=== PATIENT | male | born 1980 | race Two or more races ===

== ENCOUNTER 2020-08-13 13:27 | Emergency (ER) | payer SELFPAY ==
[~2020-08-13] VITALS: Ht 166.4 cm; Wt 72.3 kg
[2020-08-13 13:30] VITALS: BP 145/95
--- NOTE | 2020-08-13 13:50 | ED.ADGEN ---
General Adult EDM: Chief Complaint: SKIN RASH/ABSCESS HPI: HPI: Patient is a 40 male who arrives ambulatory to the emergency department complaining of some lesions that have developed the corners of his mouth as well as lesions in the folds of his groin over the past week. Patient describes the lesions as painful in the form of burning whenever he perspires. Patient states besides having these lesions, he has not had any symptoms otherwise. Specifically he is not have any penile discharge and is sexually active with only one partner however he has had unprotected sex previous to this partner which followed a divorce. He further denies any history of fevers or new exposures. He is awake, alert and nontoxic-appearing. Review of Systems: Review of Systems: Constitutional: Denies fever or chills. [] Eyes: Denies change in visual acuity. [] HENT: Denies nasal congestion or sore throat. [] Respiratory: Denies cough or shortness of breath. [] Cardiovascular: Denies chest pain or edema. [] GI: Denies abdominal pain, nausea, vomiting, bloody stools or diarrhea. [] : Denies dysuria. [] Musculoskeletal: Denies back pain or joint pain. [] Integument: Reports rash. [] Neurologic: Denies headache, focal weakness or sensory changes. [] Endocrine: Denies polyuria or polydipsia. [] Lymphatic: Denies swollen glands. [] Psychiatric: Denies depression or anxiety. [] Family History: Family History: Noncontributory Allergies: Allergies: Allergies Coded Allergies Type Severity Reaction Last Updated Verified No Known Drug Allergies 08/13/20 No Physical Exam: PE: Constitutional: Well developed, well nourished, no acute distress, non-toxic appearance. [] HENT: Normocephalic, atraumatic, bilateral external ears normal, oropharynx moist, no oral exudates, nose normal. [] Eyes: PERRLA, EOMI, conjunctiva normal, no discharge. [] Neck: Normal range of motion, no tenderness, supple, no stridor. [] Cardiovascular:Heart rate regular rhythm, no murmur [] Lungs & Thorax: Bilateral breath sounds clear to auscultation [] Abdomen: Bowel sounds normal, soft, no tenderness, no masses, no pulsatile masses. [] Skin: Patient has a lesion consistent with an ulceration at the corner of his mouth on the right side. This is likely a herpetic lesion in nature. It is not actively oozing and is solitary in nature. The patient also has lesions in his groin bilaterally. These are raised and fleshy. They are not oozing and there is not a cellulitic character present with this. There are no abscesses present. These findings are most likely consistent with genital warts. [] Back: No tenderness, no CVA tenderness. [] Extremities: No tenderness, no cyanosis, no clubbing, ROM intact, no edema. [] Neurologic: Alert and oriented X 3, normal motor function, normal sensory function, no focal deficits noted. [] Psychologic: Affect normal, judgement normal, mood normal. [] Current Patient Data: Vital Signs: Vital Signs Date Time Temp Pulse Resp B/P (MAP) Pulse Ox O2 Delivery O2 Flow Rate FiO2 08/13/20 13:30 98.2 110 18 145/95 (112) 99 Room Air 98.2 EKG: EKG: [] Heart Score: Risk Factors: Risk Factors: DM, Current or recent (<one month) smoker, HTN, HLP, family his tory of CAD, obesity. Risk Scores: Score 0 - 3: 2.5% MACE over next 6 weeks - Discharge Home Score 4 - 6: 20.3% MACE over next 6 weeks - Admit for Clinical Observation Score 7 - 10: 72.7% MACE over next 6 weeks - Early Invasive Strategies Radiology/Procedures: Radiology/Procedures: [] Course & Med Decision Making: Course & Med Decision Making Pertinent Labs and Imaging studies reviewed. (See chart for details) [] Joleen Disclaimer: Joleen Disclaimer: This electronic medical record was generated, in whole or in part, using a voice recognition dictation system. Departure Departure Impression: Primary Impression: Genital warts Additional Impression: Herpetic lesions of face Disposition: 01 DC HOME SELF CARE/HOMELESS Condition: STABLE Referrals: NO PCP (PCP) Patient Instructions: Genital Warts, Herpes Labialis Scripts Acyclovir (ACYCLOVIR) 400 Mg Tablet 1 TAB PO TID for 10 Days, #30 TAB Prov: IVAN RICE DO 08/13/20 Problem Qualifiers IVAN RICE DO Aug 13, 2020 13:50
[2020-08-13] MEDS ORDERED: ACYC400T PO (13:57)
== END 2020-08-13 14:08 | disposition home or self-care (01) ==
LOC: ER 13:27
DX: B00.89 Other herpesviral infection (principal); A63.0 Anogenital (venereal) warts
CPT/HCPCS: 99283

== ENCOUNTER 2021-04-10 06:47 | Emergency (ER) | payer SELFPAY ==
[~2021-04-10] VITALS: Ht 165.1 cm; Wt 82.7 kg
[~2021-04-10 06:47] MED LIST: ACYC-12 PO; ACYC800T88 PO
--- NOTE | 2021-04-10 07:07 | PHYS DOC ---
Past Medical History Past Medical History: Hypertension Past Surgical History: Other Additional Past Surgical Histo: LITHORIPSY Smoking Status: Current Every Day Smoker Alcohol Use: None General Adult EDM: Chief Complaint: DENTAL PROBLEM HPI: HPI: Patient is a 40 year old male history of HTN who presents with multiple complaints. Primary complaint is left-sided dental pain, neck, and lip swelling. States that a left-sided molar has been fractured and has been hurting him for quite some time. Over the past 3 days has had increasing swelling of the lip and neck on the left. He does report some chills since last night. He reports he does have a longstanding history of dental problems, and has a dentist appointment on Monday of the upcoming week. He also complains of dysuria over the past week as well as penile discharge that is yellow. Reports urgency, frequency as well. No low back pain or flank pain. He is sexually active with one partner for the past 6 months. States no history of STI. Does not use barrier contraception. Review of Systems: Review of Systems: Constitutional: Denies fever or chills. [] Eyes: Denies change in visual acuity. [] HENT: Reports left-sided dental pain, left lip swelling, left neck swelling. Respiratory: Denies cough or shortness of breath. [] Cardiovascular: Denies chest pain or edema. [] GI: Denies abdominal pain, nausea, vomiting, bloody stools or diarrhea. [] : Reports penile discharge, dysuria, urgency, frequency. Musculoskeletal: Denies back pain or joint pain. [] Integument: Denies rash. [] Neurologic: Denies headache, focal weakness or sensory changes. [] Endocrine: Denies polyuria or polydipsia. [] Lymphatic: Denies swollen glands. [] Psychiatric: Denies depression or anxiety. [] Heart Score: C/O Chest Pain: No Allergies: Allergies: Allergies Coded Allergies Type Severity Reaction Last Updated Verified No Known Drug Allergies 08/13/20 No Physical Exam: PE: Constitutional: Well developed, well nourished, no acute distress, non-toxic appearance. [] HENT: Fracture left mandibular molar at the gumline. Some gum swelling nearby redness, but no palpable abscess. There is submandibular swelling on the left, submental tenderness to palpation, and prominent left lower lip swelling and tenderness. Just below the ameya border there is an area of spontaneous drainage. No posterior pharyngeal swelling or uvular deviation. No stridor. Eyes: conjunctiva normal, no discharge. [] Neck: Normal range of motion, no tenderness, supple, no stridor. [] Cardiovascular:Heart rate regular rhythm, no murmur [] Lungs & Thorax: Normal work of breathing. Bilateral breath sounds clear to ausc ultation [] Abdomen: Bowel sounds normal, soft, no tenderness, no masses, no pulsatile masses. [] Skin: Warm, dry, no erythema, no rash. [] Back: No tenderness, no CVA tenderness. [] Extremities: No tenderness, no cyanosis, no clubbing, ROM intact, no edema. [] Neurologic: Alert and oriented X 3, normal motor function, normal sensory function, no focal deficits noted. [] Psychologic: Affect normal, judgement normal, mood normal. [] EKG: EKG: [] Radiology/Procedures: Radiology/Procedures: Indication: Left lower lip abscess. Procedure: The patient was positioned appropriately. Local anesthesia was injected with 1% lidocaine. An small stab incision was then made over the apex of the lesion, where a small amount of drainage was already noted just below the ameya border and thick purulent material was expressed. The patients tetanus status updated as needed. The patient tolerated the procedure with some difficulty Complications: none. Impression: [facility] [address] [place] [address] IMAGING REPORT Signed PATIENT: BERTHA MENA AACCOUNT: [id number] : 1980 LOCATION: ER AGE: 40 SEX: M EXAM STATUS: REG ER ORD. PHYSICIAN: CHRISS PAL MD REASON: concern for neck abscess, left mandibular source likely PROCEDURE: CT SOFT TISSUE NECK W/CONTRAST CT scan of the neck with contrast 04/10/2021 CLINICAL HISTORY: Neck swelling and pain. TECHNIQUE: After the intravenous administration of 70 cc of Isovue-370, contiguous, 0.625 mm axial sections were obtained through the neck. 3 mm reconstructed sagittal, axial and coronal images were obtained. One or more of the following individualized dose reduction techniques were utilized for this study: 1. Automated exposure control. 2. Adjustment of the mA and/or kV according to patient size. 3. Use of iterative reconstruction technique. FINDINGS: Prominence of the adenoid and palatine tonsils is seen. No abnormal fluid collection is seen to suggest evidence of an abscess. The mucosal structures of the hypopharynx and larynx are within normal limits. The thyroid gland is within normal limits. The parotid and submandibular glands are within normal limits. The paranasal sinuses are well aerated and are clear. The orbits are within normal limits. Prominent lymph nodes are seen anterior and medial to the left submandibular gland which measure 1.2 x 1.8 cm in size. Faint increased density is seen in the fat surrounding these lymph nodes. These findings are consistent with a lymphadenitis. The patient has poor dentition with multiple missing and/or fractured teeth. The left lower second molar is fractured off at the root. A periapical lucency surrounds this root within the body of the mandible which measures 8 mm in size. This may represent periapical abscess. The osseous structures are grossly intact. IMPRESSION: 1. 8 mm periapical lucency surrounds the root of the remaining left lower second molar which may represent a periapical abscess. 2. Prominent lymph nodes are seen surrounding the left submandibular gland consistent with a lymphadenitis. 3. No soft tissue abscess is seen. Electronically signed by: Erich Mobley MD (04/10/2021 8:06 AM) [id number] DICTATED and SIGNED BY: ERICH MOBLEY MD DATE: 04/10/21 [id number] 0 Course & Med Decision Making: Course & Med Decision Making Pertinent Labs and Imaging studies reviewed. (See chart for details) Patient 40-year-old male who presents with a left dental pain, submandibular, submental swelling, and left lower lip swelling. Also complains of dysuria and penile discharge. On arrival is afebrile, hemodynamically stable. Airway intact without evidence of compromise. He does have submental swelling, tenderness, submandibular swelling on the left concerning for abscess. Will obtain CT neck/soft tissues with contrast. We will obtain UA, GC/chlamydia and treat empirically for STI with IM ceftriaxone. 0706 CT does not show any deep space abscess., But does show periapical abscess of the fractured left molar. My review, does raise a concern for abscess within the lip. I&D as above with thick purulent drainage. We will discharge with doxycycline for empiric STI treatment as well as clindamycin for dental infection with history of MRSA. Patient will follow up with his dentist on Monday. 0837 Joleen Disclaimer: Joleen Disclaimer: This electronic medical record was generated, in whole or in part, using a voice recognition dictation system. Departure Departure Impression: Primary Impression: Periapical abscess Additional Impressions: Facial abscess Fractured tooth Dental caries Urethritis Disposition: HOME / SELF CARE / HOMELESS Condition: STABLE Referrals: NO PCP (PCP) Additional Instructions: It will be very important that you follow-up with your dentist this week. You have evidence of dental infection. The abscess of your lip was drained. Please do warm soaks/compresses of the lip to keep the area draining. Please take both antibiotics as prescribed. We are treating you both for the dental infection and for a urinary tract infection/concern for chlamydia/gonorrhea which you are being tested for. These test take about 48 hours to come back. You should be called with a positive result. If you do not hear within 72 hours you can call the hospital for your results. Scripts Doxycycline Hyclate (DOXYCYCLINE HYCLATE) 100 Mg Capsule 1 CAP PO BID for 7 Days, #14 CAP 0 Refills Prov: CHRISS PAL MD 04/10/21 Clindamycin Hcl (CLINDAMYCIN HCL) 300 Mg Capsule 1 CAP PO TID for 10 Days, #30 CAP Prov: CHRISS PAL MD 04/10/21 CHRISS PAL MD Apr 10, 2021 07:07
[2021-04-10] MEDS ORDERED: cefTRIAXone IM 500 MG VIAL. IM ONE (07:15)
[2021-04-10 07:30] LABS: CALCIUM 8.5 mg/dL (8.5-10.1); CREATININE 0.9 mg/dL (0.7-1.3); GFR 92.5
[2021-04-10] MEDS ORDERED: IOHEXOL 300 MG/ML 100ML VIAL. IV ONE (07:30)
[2021-04-10 07:36] LABS: BILIRUBIN,URINE NEGATIVE (NEG); CLARITY,URINE CLEAR; COLOR,URINE YELLOW; NITRITE,URINE NEGATIVE (NEG); PROTEIN,URINE 30 mg/dL (NEG-TRACE)
[2021-04-10 07:41] LABS: BASO # 0.1 x10^3/uL (0.0-0.2); BASO % 1 % (0-3); EOS # 0.4 x10^3/uL (0.0-0.7); EOS % 2 % (0-3); HEMATOCRIT 45.1 % (39.0-53.0); HEMOGLOBIN 15.5 g/dL (13.0-17.5); LYMPH # 1.8 x10^3/uL (1.0-4.8); LYMPH % 11 % (24-48); MEAN CORPUSCULAR HEMOGLOBIN 28 pg (25-35); MEAN CORPUSCULAR HGB CONC 34 g/dL (31-37); MEAN CORPUSCULAR VOLUME 83 fL (79-100); MONO # 1.3 x10^3/uL (0.0-1.1); MONO % 8 % (0-9); NEUT # 12.2 x10^3/uL (1.8-7.7); NEUT % 78 % (31-73); PLATELET COUNT 357 x10^3/uL (140-400); RED BLOOD COUNT 5.46 x10^6/uL (4.30-5.70); WHITE BLOOD COUNT 15.7 x10^3/uL (4.0-11.0)
--- NOTE | 2021-04-10 08:09 | RAD ---
CT scan of the neck with contrast 04/10/2021 CLINICAL HISTORY: Neck swelling and pain. TECHNIQUE: After the intravenous administration of 70 cc of Isovue-370, contiguous, 0.625 mm axial se ctions were obtained through the neck. 3 mm reconstructed sagittal, axial and coronal images were obt ained. One or more of the following individualized dose reduction techniques were utilized for this study: 1. Automated exposure control. 2. Adjustment of the mA and/or kV according to patient size. 3. Use of iterative reconstruction technique. FINDINGS: Prominence of the adenoid and palatine tonsils is seen. No abnormal fluid collection is see n to suggest evidence of an abscess. The mucosal structures of the hypopharynx and larynx are within normal limits. The thyroid gland is within normal limits. The parotid and submandibular glands are wi thin normal limits. The paranasal sinuses are well aerated and are clear. The orbits are within ирина l limits. Prominent lymph nodes are seen anterior and medial to the left submandibular gland which measure 1.2 x 1.8 cm in size. Faint increased density is seen in the fat surrounding these lymph nodes. These fin dings are consistent with a lymphadenitis. The patient has poor dentition with multiple missing and/o r fractured teeth. The left lower second molar is fractured off at the root. A periapical lucency courtney rounds this root within the body of the mandible which measures 8 mm in size. This may represent melissa apical abscess. The osseous structures are grossly intact. IMPRESSION: 1. 8 mm periapical lucency surrounds the root of the remaining left lower second molar which may repr esent a periapical abscess. 2. Prominent lymph nodes are seen surrounding the left submandibular gland consistent with a lymphade nitis. 3. No soft tissue abscess is seen. Electronically signed by: Erich Samaniego MD (04/10/2021 8:06 AM) [id number]
[2021-04-10 08:15] LABS: BACTERIA,URINE FEW /HPF (0-FEW); SPERM,URINE PRESENT /HPF
[2021-04-10] MEDS ORDERED: DOXY100C3 PO (08:43)
[2021-04-10] MEDS ORDERED: CLIN-94 PO (08:43)
[2021-04-10 08:48] VITALS: BP 141/84
== END 2021-04-10 09:14 | disposition home or self-care (01) ==
LOC: ER 06:47
DX: S02.5XXA Fracture of tooth (traumatic), initial encounter for closed fracture (principal); K04.7 Periapical abscess without sinus; L02.01 Cutaneous abscess of face; K02.9 Dental caries, unspecified; N34.2 Other urethritis; M54.2 Cervicalgia; I10 Essential (primary) hypertension; F17.200 Nicotine dependence, unspecified, uncomplicated; X58.XXXA Exposure to other specified factors, initial encounter; Y93.89 Activity, other specified; Y92.89 Other specified places as the place of occurrence of the external cause; Y99.8 Other external cause status
CPT/HCPCS: 40800; 70491; 80048; 81001; 85025; 87491; 87591; 96372; 99285; J0696; Q9967

== ENCOUNTER 2021-10-22 00:05 | Emergency (ER) | payer SELFPAY ==
[~2021-10-22] VITALS: Ht 165.1 cm; Wt 75.8 kg
[~2021-10-22 00:05] MED LIST changes: +CLIN-94 PO; +DOXY100C3 PO
--- NOTE | 2021-10-22 00:41 | PHYS DOC ---
Past Medical History Past Medical History: Hypertension Past Surgical History: Other Additional Past Surgical Histo: LITHORIPSY Smoking Status: Current Every Day Smoker Alcohol Use: None General Adult EDM: Chief Complaint: BACK PAIN - NO INJURY HPI: HPI: Patient is a 41 year old MALE presented to the ER for evaluation of right lower back pain that radiating to right lower quadrant abdomen area into his right groin. Patient said he lifted a heavy washer yesterday. He felt like he pulled his back when he did that. Patient said he woke up this morning with severe pain in lower back area, hurt worse with movement of his lower back. Patient denies any bowel or bladder incontinence. Patient denies any nausea vomiting. Patient denies any fever. Review of Systems: Review of Systems: Constitutional: Denies fever or chills. [] Eyes: Denies change in visual acuity. [] HENT: Denies nasal congestion or sore throat. [] Respiratory: Denies cough or shortness of breath. [] Cardiovascular: Denies chest pain or edema. [] GI: Positive for right lower abdominal pain, NO nausea, vomiting, bloody stools or diarrhea. [] : Denies dysuria. [] Musculoskeletal: POSITIVE FOR LOWER BACK PAIN, RIGHT GROIN PAIN Integument: Denies rash. [] Neurologic: Denies headache, focal weakness or sensory changes. [] Endocrine: Denies polyuria or polydipsia. [] Lymphatic: Denies swollen glands. [] Psychiatric: Denies depression or anxiety. [] Heart Score: C/O Chest Pain: N/A Risk Factors: Risk Factors: DM, Current or recent (<one month) smoker, HTN, HLP, family history of CAD, obesity. Risk Scores: Score 0 - 3: 2.5% MACE over next 6 weeks - Discharge Home Score 4 - 6: 20.3% MACE over next 6 weeks - Admit for Clinical Observation Score 7 - 10: 72.7% MACE over next 6 weeks - Early Invasive Strategies Current Medications: Current Medications Medications (Trade) Dose Ordered Sig/Raul Start Time Stop Time Status Last Admin Dose Admin Ketorolac Tromethamine (Toradol 30mg Vial) 30 mg 1X ONCE 10/22/21 01:00 10/22/21 01:01 Methylprednisolone Sodium Succinate (SOLU-Medrol 125MG VIAL) 125 mg 1X ONCE 10/22/21 00:45 10/22/21 00:46 UNV Sodium Chloride 1,000 ml @ 1,000 mls/hr 1X ONCE 10/22/21 01:00 10/22/21 01:59 Allergies: Allergies: Allergies Coded Allergies Type Severity Reaction Last Updated Verified No Known Drug Allergies 08/13/20 No Physical Exam: PE: Constitutional: Well developed, well nourished, no acute distress, non-toxic appearance. [] HENT: Normocephalic, atraumatic, bilateral external ears normal, oropharynx moist, no oral exudates, nose normal. [] Eyes: PERRLA, EOMI, conjunctiva normal, no discharge. [] Neck: Normal range of motion, no tenderness, supple, no stridor. [] Cardiovascular:Heart rate regular rhythm, no murmur [] Lungs & Thorax: Bilateral breath sounds clear to auscultation [] Abdomen: Bowel sounds normal, soft, RIGHT LOWER QUADRANT IS TENDER TO PALPATION. NO masses, no pulsatile masses. [] Skin: Warm, dry, no erythema, no rash. [] Back: RIGHT SIDE LOWER LUMBAR AREA IS TENDER TO PALPATION. Extremities: No tenderness, no cyanosis, no clubbing, ROM intact, no edema. [] Neurologic: Alert and oriented X 3, normal motor function, normal sensory function, no focal deficits noted. [] Psychologic: Affect normal, judgement normal, mood normal. [] Current Patient Data: Labs: Laboratory Tests Test 10/22/21 00:55 10/22/21 01:35 White Blood Count 9.4 x10^3/uL Red Blood Count 5.51 x10^6/uL Hemoglobin 16.1 g/dL Hematocrit 45.6 % Mean Corpuscular Volume 83 fL Mean Corpuscular Hemoglobin 29 pg Mean Corpuscular Hemoglobin Concent 35 g/dL Red Cell Distribution Width 14.1 % Platelet Count 383 x10^3/uL Neutrophils (%) (Auto) 70 % Lymphocytes (%) (Auto) 19 % Monocytes (%) (Auto) 8 % Eosinophils (%) (Auto) 2 % Basophils (%) (Auto) 1 % Neutrophils # (Auto) 6.5 x10^3/uL Lymphocytes # (Auto) 1.8 x10^3/uL Monocytes # (Auto) 0.7 x10^3/uL Eosinophils # (Auto) 0.2 x10^3/uL Basophils # (Auto) 0.1 x10^3/uL Sodium Level 142 mmol/L Potassium Level 3.7 mmol/L Chloride Level 105 mmol/L Carbon Dioxide Level 27 mmol/L Anion Gap 10 Blood Urea Nitrogen 8 mg/dL Creatinine 0.9 mg/dL Estimated GFR (Cockcroft-Gault) 92.1 BUN/Creatinine Ratio 9 Glucose Level 113 mg/dL Calcium Level 9.0 mg/dL Total Bilirubin 0.6 mg/dL Aspartate Amino Transf (AST/SGOT) 12 U/L Alanine Aminotransferase (ALT/SGPT) 22 U/L Alkaline Phosphatase 65 U/L Total Protein 7.4 g/dL Albumin 3.5 g/dL Albumin/Globulin Ratio 0.9 Urine Collection Type Unknown Urine Color (Auto) Light yellow Urine Turbidity Hazy Urine pH (Auto) 6.5 Urine Specific [place] 1.017 Urine Protein (Auto) Negative mg/dL Urine Glucose (Auto)(UA) Negative mg/dL Urine Ketones (Auto) Negative mg/dL Urine Blood (Auto) Negative Urine Nitrite (Auto) Negative Urine Bilirubin (Auto) Negative Urine Urobilinogen (Auto) Normal mg/dL Urine Leukocyte Esterase (Auto) Negative Urine RBC 0 /HPF Urine WBC 5-10 /HPF Urine Squamous Epithelial Cells Occ /LPF Urine Amorphous Sediment Present /HPF Urine Bacteria 0 /HPF Urine Hyaline Casts Occasional /HPF Urine Granular Casts Occasional /HPF Urine Mucus Marked /LPF Current Medications Medications (Trade) Dose Ordered Sig/Raul Route PRN Reason Start Time Stop Time Status Last Admin Dose Admin Sodium Chloride 1,000 ml @ 1,000 mls/hr 1X ONCE IV 10/22/21 01:00 10/22/21 01:59 DC Ketorolac Tromethamine (Toradol 30mg Vial) 30 mg 1X ONCE IVP 10/22/21 01:00 10/22/21 01:01 DC 10/22/21 01:26 Methylprednisolone Sodium Succinate (SOLU-Medrol 125MG VIAL) 125 mg 1X ONCE IV 10/22/21 01:00 10/22/21 01:01 DC 10/22/21 01:26 Iohexol (Omnipaque 300 Mg/ml) 75 ml 1X ONCE IV 10/22/21 02:30 10/22/21 02:31 DC 10/22/21 02:01 Info (CONTRAST GIVEN -- Rx MONITORING) 1 each PRN DAILY PRN MC SEE COMMENTS 10/22/21 02:00 10/24/21 01:59 EKG: EKG: [] Radiology/Procedures: Radiology/Procedures: [][facility] [address] [place] [address] IMAGING REPORT Signed PATIENT: BERTHA MENA AACCOUNT: [id number] : 1980 LOCATION: ER AGE: 41 SEX: M EXAM STATUS: PRE ER ORD. PHYSICIAN: JANAY JUAREZ DO REASON: RLQ ABDOMINAL PAIN, RIGHT LOWER BACK PAIN;OMNI 300,75ML PROCEDURE: CT ABD PELV W/ IV CONTRST ONLY INDICATION: Reason: RLQ ABDOMINAL PAIN, RIGHT LOWER BACK PAIN;OMNI 300,75ML / Spl. Instructions: / History: COMPARISON: None. TECHNIQUE: Axial CT images were obtained through the abdomen and pelvis with intravenous contrast. One or more of the following individualized dose reduction techniques were utilized for this examination: 1. Automated exposure control; 2. Adjustment of the mA and/or kV according to patient size; 3. Use of iterative reconstruction technique. FINDINGS: Vascular: No abdominal aortic aneurysm. Hepatobiliary: Liver is low density which could be seen with fatty infiltration. Gallstones are seen. Pancreas: No peripancreatic edema. Spleen: Spleen unremarkable. Renal/Bladder: 2 mm nonobstructive left renal stone. 1 mm nonobstructive right renal stone. No significant hydronephrosis. Urinary bladder has minimal urine within it at time of exam. Gastrointestinal: No periappendiceal inflammatory changes. No dilated loops of bowel suggest obstruction. Degenerative changes of the spine. There is sclerosis and lucency seen within the pelvis bilaterally. Mild wedging of the T11 and T10 vertebral body. IMPRESSION: * No evidence of bowel obstruction or appendicitis. * Gallstones. * Sclerosis and lucency is seen within the osseous structures of the pelvis. Correlate for possible causes such as Paget's disease. Would also correlate with history of neoplasm to ensure there is not a less common marrow infiltrative neoplastic etiology. Electronically signed by: Radha Faust MD (10/22/2021 2:31 AM) [id number] DICTATED and SIGNED BY: RADHA FAUST MD DATE: 10/22/21220 Course & Med Decision Making: Course & Med Decision Making Pertinent Labs and Imaging studies reviewed. (See chart for details) Patient is a 41-year-old male who present to ER due to low back pain, right- sided abdominal pain after he lifted a heavy washer yesterday. CT scan head abdomen pelvic show some degenerative changes in his lumbar spine, there is some sclerotic changes in the bony structures of the pelvic area. Patient was informed about this finding on his CT scan, patient was advised to follow-up with his family physician for further evaluation of this finding. Patient be discharged home with pain medication, muscle relaxer. Dragon Disclaimer: Dragon Disclaimer: This electronic medical record was generated, in whole or in part, using a voice recognition dictation system. Departure Departure Impression: Primary Impression: Lower back injury Additional Impression: Lower back pain Disposition: 01 HOME / SELF CARE / HOMELESS Condition: STABLE Referrals: NO PCP (PCP) Follow up with your doctor next week for reevaluation. Patient Instructions: Back Pain, Adult, Low Back Sprain with Rehab[facility]Sports[facility] Additional Instructions: Follow-up with your family physician to review the CT scan of your abdomen pelvis result today. There is some abnormality in your pelvic bone that need to be follow-up with your doctor. Please take the CT SCAN report that was given to you to your doctor to review with your doctor next week. Scripts Ibuprofen (IBUPROFEN) 800 Mg Tablet 800 MG PO PRN Q6HRS PRN for INFLAMMATION, #30 TAB Prov: JANAY JUAREZ DO 10/22/21 Prednisone (PREDNISONE) 20 Mg Tablet 1 TAB PO DAILY for 7 Days, #7 TAB Prov: JANAY JUAREZ DO 10/22/21 Cyclobenzaprine Hcl (CYCLOBENZAPRINE HCL) 10 Mg Tablet 1 TAB PO TID PRN for MUSCLE SPASMS, #20 TAB Prov: JANAY JUAREZ DO 10/22/21 JANAY JUAREZ DO October 22, 2021 00:41
[2021-10-22] MEDS ORDERED: KETOROLAC 30 MG/ML VIAL. IVP ONE (01:00)
[2021-10-22] MEDS ORDERED: IV NORMAL SALINE 1000ML BAG 1,000 ML IV ONE (01:00)
[2021-10-22] MEDS ORDERED: methylPREDNISolone SOD SUCC PF 125 MG/2 ML VIAL. IV ONE (01:00)
[2021-10-22 01:07] LABS: BASO # 0.1 x10^3/uL (0.0-0.2); BASO % 1 % (0-3); EOS # 0.2 x10^3/uL (0.0-0.7); EOS % 2 % (0-3); HEMATOCRIT 45.6 % (39.0-53.0); HEMOGLOBIN 16.1 g/dL (13.0-17.5); LYMPH # 1.8 x10^3/uL (1.0-4.8); LYMPH % 19 % (24-48); MEAN CORPUSCULAR HEMOGLOBIN 29 pg (25-35); MEAN CORPUSCULAR HGB CONC 35 g/dL (31-37); MEAN CORPUSCULAR VOLUME 83 fL (79-100); MONO # 0.7 x10^3/uL (0.0-1.1); MONO % 8 % (0-9); NEUT # 6.5 x10^3/uL (1.8-7.7); NEUT % 70 % (31-73); PLATELET COUNT 383 x10^3/uL (140-400); RED BLOOD COUNT 5.51 x10^6/uL (4.30-5.70); RED CELL DISTRIBUTION WIDTH 14.1 % (11.5-14.5); WHITE BLOOD COUNT 9.4 x10^3/uL (4.0-11.0)
[2021-10-22 01:32] LABS: CREATININE 0.9 mg/dL (0.7-1.3); GFR 92.1; POTASSIUM 3.7 mmol/L (3.5-5.1)
[2021-10-22 01:40] LABS: ALBUMIN 3.5 g/dL (3.4-5.0); ALBUMIN/GLOBULIN RATIO 0.9 (1.0-1.7); TOTAL BILIRUBIN 0.6 mg/dL (0.2-1.0); TOTAL PROTEIN 7.4 g/dL (6.4-8.2)
[2021-10-22] MEDS ORDERED: CONTRAST GIVEN. MC PRN (02:00)
[2021-10-22 02:06] LABS: AMORPHOUS SEDIMENT,UR PRESENT /HPF; BACTERIA,URINE 0 /HPF (0-FEW); GRANULAR CASTS,URINE OCCASIONAL /HPF; HYALINE CASTS, URINE OCCASIONAL /HPF; RBC,URINE 0 /HPF (0-2)
[2021-10-22] MEDS ORDERED: IOHEXOL 300 MG/ML 100ML VIAL. IV ONE (02:30)
--- NOTE | 2021-10-22 02:33 | RAD ---
INDICATION: Reason: RLQ ABDOMINAL PAIN, RIGHT LOWER BACK PAIN;OMNI 300,75ML / Spl. Instructions: / H istory: COMPARISON: None. TECHNIQUE: Axial CT images were obtained through the abdomen and pelvis with intravenous contrast. One or more of the following individualized dose reduction techniques were utilized for this examinat ion: 1. Automated exposure control; 2. Adjustment of the mA and/or kV according to patient size; 3 . Use of iterative reconstruction technique. FINDINGS: Vascular: No abdominal aortic aneurysm. Hepatobiliary: Liver is low density which could be seen with fatty infiltration. Gallstones are seen. Pancreas: No peripancreatic edema. Spleen: Spleen unremarkable. Renal/Bladder: 2 mm nonobstructive left renal stone. 1 mm nonobstructive right renal stone. No signif icant hydronephrosis. Urinary bladder has minimal urine within it at time of exam. Gastrointestinal: No periappendiceal inflammatory changes. No dilated loops of bowel suggest obstruct ion. Degenerative changes of the spine. There is sclerosis and lucency seen within the pelvis bilaterally. Mild wedging of the T11 and T10 vertebral body. IMPRESSION: * No evidence of bowel obstruction or appendicitis. * Gallstones. * Sclerosis and lucency is seen within the osseous structures of the pelvis. Correlate for possible causes such as Paget's disease. Would also correlate with history of neoplasm to ensure there is not a less common marrow infiltrative neoplastic etiology. Electronically signed by: Lance Faust MD (10/22/2021 2:31 AM) [id number]
[2021-10-22] MEDS ORDERED: PRED20TA PO (03:04)
[2021-10-22] MEDS ORDERED: CYCL10TA19 PO (03:04)
[2021-10-22] MEDS ORDERED: IBUP-1060 PO (03:04)
[2021-10-22 03:12] VITALS: BP 141/92
--- NOTE | 2021-10-22 03:33 | RAD ---
INDICATION: Reason: lower back pain after lifting a heavy Washer / Spl. Instructions: / History: COMPARISON: None. IMPRESSION: Lumbar spine: 3 views obtained. No definite acute fracture or dislocation. Regions of lucency and scl erosis within the pelvis bones. Degenerative changes of the spine with osteophyte formation as well a s facet hypertrophy. Mild wedging of a T11 vertebral body. No definite lumbar spine fracture. Electronically signed by: Lance Faust MD (10/22/2021 3:30 AM) [id number]
== END 2021-10-22 03:19 | disposition home or self-care (01) ==
LOC: ER 00:06
DX: S39.92XA Unspecified injury of lower back, initial encounter (principal); I10 Essential (primary) hypertension; F17.200 Nicotine dependence, unspecified, uncomplicated; X50.9XXA Other and unspecified overexertion or strenuous movements or postures, initial encounter; Y93.89 Activity, other specified; Y92.89 Other specified places as the place of occurrence of the external cause; Y99.8 Other external cause status
CPT/HCPCS: 36415; 72100; 74177; 80053; 81001; 85025; 96361; 96374; 96375; 99285; J1885; J2930; J7030; Q9967

== ENCOUNTER 2021-11-10 04:12 | Emergency (ER) | payer SELFPAY ==
[~2021-11-10] VITALS: Ht 165.1 cm; Wt 72.7 kg
[~2021-11-10 04:12] MED LIST changes: +CYCL10TA19 PO; +IBUP-1060 PO; +PRED20TA PO
--- NOTE | 2021-11-10 05:03 | PHYS DOC ---
Past Medical History Past Medical History: Hypertension Past Surgical History: No Surgical History Additional Past Surgical Histo: LITHORIPSY Smoking Status: Unknown if ever smoked Alcohol Use: None General Adult EDM: Chief Complaint: ABDOMINAL PAIN HPI: HPI: 41 yo M, pmhx HTN, presents with multiple complaints, 3 weeks of generalized abdominal pain, diffuse back pain, more recently with 3 days of dysuria and testicular pain and swelling. Patient here 2 weeks ago for exact same complaint. CT a/p and lumbar spine suggestive of Paget's disease given multiple lucencies. Patient states he was not given any pain medications upon discharge. No trauma or falls. CT was negative for any acute intraabdominal pathology. Review of Systems: Review of Systems: Constitutional: Denies fever or chills. [] Eyes: Denies change in visual acuity. [] HENT: Denies nasal congestion or sore throat. [] Respiratory: Denies cough or shortness of breath. [] Cardiovascular: Denies chest pain or edema. [] GI: + abdominal pain, no, nausea, vomiting, bloody stools or diarrhea. [] : + dysuria and bilateral testicular pain/swelling. [] Musculoskeletal: + back pain, no joint pain. [] Integument: Denies rash. [] Neurologic: Denies headache, focal weakness or sensory changes. [] Endocrine: Denies polyuria or polydipsia. [] Lymphatic: Denies swollen glands. [] Psychiatric: Denies depression or anxiety. [] Heart Score: C/O Chest Pain: No Risk Factors: Risk Factors: DM, Current or recent (<one month) smoker, HTN, HLP, family history of CAD, obesity. Risk Scores: Score 0 - 3: 2.5% MACE over next 6 weeks - Discharge Home Score 4 - 6: 20.3% MACE over next 6 weeks - Admit for Clinical Observation Score 7 - 10: 72.7% MACE over next 6 weeks - Early Invasive Strategies Current Medications: Current Medications Medications (Trade) Dose Ordered Sig/Raul Start Time Stop Time Status Last Admin Dose Admin Acetaminophen (Tylenol) 650 mg 1X ONCE 11/10/21 05:00 11/10/21 05:01 UNV Ketorolac Tromethamine (Toradol Im) 30 mg 1X ONCE 11/10/21 05:00 11/10/21 05:01 UNV Morphine Sulfate (Morphine Sulfate) 2 mg 1X ONCE 5/25/22 05:00 11/10/21 05:01 UNV Allergies: Allergies: Allergies Coded Allergies Type Severity Reaction Last Updated Verified No Known Drug Allergies 11/10/21 No Physical Exam: PE: Constitutional: Well developed, well nourished, no acute distress, non-toxic appearance. [] HENT: Normocephalic, atraumatic, bilateral external ears normal, oropharynx moist, no oral exudates, nose normal. [] Eyes: PERRLA, EOMI, conjunctiva normal, no discharge. [] Neck: Normal range of motion, no tenderness, supple, no stridor. [] Cardiovascular:Heart rate regular rhythm, no murmur [] Lungs & Thorax: Bilateral breath sounds clear to auscultation [] Abdomen: Bowel sounds normal, soft, no tenderness, no masses, no pulsatile masses. [] Skin: Warm, dry, no erythema, no rash. [] : normal male genitalia, testicles are soft and no obvious edema or erythema however they are tender to palpation, normal lie, normal cremaster reflex Back: No tenderness, no CVA tenderness. [] Extremities: No tenderness, no cyanosis, no clubbing, ROM intact, no edema. [] Neurologic: Alert and oriented X 3, normal motor function, normal sensory function, no focal deficits noted. [] Psychologic: Affect normal, judgement normal, mood normal. [] Current Patient Data: Vital Signs: Vital Signs Date Time Temp Pulse Resp B/P (MAP) Pulse Ox O2 Delivery O2 Flow Rate FiO2 11/10/21 04:12 98.2 101 20 154/98 (116) 98 Room Air 98.2 EKG: EKG: [] Radiology/Procedures: Radiology/Procedures: [] Course & Med Decision Making: Course & Med Decision Making Pertinent Labs and Imaging studies reviewed. (See chart for details) Additional Social History: PMD from non-affiliated facility. Patient Lives at home. Family History: Non-pertinent to today's complaint. Nursing Notes Reviewed Previous Medical Records requested via [facility] Web: Reviewed by me. EMERGENCY DEPARTMENT COURSE/ MEDICAL DECISION MAKING: I examined the patient, evaluated and addressed patient's chief complaint. The patient was treated with Toradol, morphine, Tylenol. r/o UTI, epidydimitis pain control for chronic back pain likely secondary to bony lucencies seen on previous CT, suggestive of Paget's disease. s/p ceftriaxone IM and levofloxacin for epidydimitis seen on ultrasound Stressed importance of rheumatology f/u for abnormal bony findings. The patient understands that todays Emergency Department evaluation does not represent a comprehensive medical workup, and it is impossible to diagnose all possible illnesses from a single Emergency Department visit. The patient verbalized understanding that it is absolutely necessary to have follow-up with regular primary care physician within 1-2 days for more detailed workup and continued exam. I explained the findings and plan to the patient, who expressed verbal understanding and agreed with plan for discharge and follow up. The patient was given after care instructions and welcomed to return to the ED for re-evaluation in 8-12 hours, especially for any new or worsening symptoms. Patient's blood pressure was elevated (>120/80) but appears stable without evidence of end organ damage, malignant hypertension, hypertensive emergency or urgency. The patient was counseled about the risks of hypertension and urged to pursue outpatient monitoring and therapy within a week with their primary care physician. The patient was stable at the time of discharge. DIAGNOSTIC IMPRESSION: 1. epidydimitis 2. bony abnormality DISPOSITION: Disposition: Discharge Home. Condition: Improved Follow-Up: PMD, Rheumatology Prescriptions: tylenol, ibuprofen, robaxin, lidocaine patch, levaquin Return to the Emergency Department for new or worsening symptoms. Joleen Disclaimer: Joleen Disclaimer: This electronic medical record was generated, in whole or in part, using a voice recognition dictation system. Departure Departure Impression: Primary Impression: Right epididymitis Additional Impression: Bone anomaly Disposition: HOME / SELF CARE / HOMELESS Condition: STABLE Referrals: NO PCP (PCP) Scripts Levofloxacin (LEVOFLOXACIN) 500 Mg Tablet 1 TAB PO DAILY for 10 Days, #10 TAB Prov: IVANA LEAL MD 11/10/21 Methocarbamol (METHOCARBAMOL) 750 Mg Tablet 750 MG PO BID PRN for PAIN for 30 Days, #60 TAB Prov: IVANA LEAL MD 11/10/21 Lidocaine (Lidocaine PATCH ) 1 Each Adh..patch 1 EACH TP DAILY for FOR LOCAL PAIN, #30 PATCH REMOVE AFTER 12 HOURS Prov: IVANA LEAL MD 11/10/21 Acetaminophen (TYLENOL) 325 Mg Tablet 1-2 TAB PO QID, #60 TAB Prov: IVANA LEAL MD 11/10/21 Ibuprofen (IBUPROFEN) 400 Mg Tablet 400 MG PO PRN Q6HRS PRN for INFLAMMATION, #30 TAB Prov: IVANA LEAL MD 11/10/21 VIANA LEAL MD November 10, 2021 05:03
[2021-11-10] MEDS ORDERED: MORPHINE SULFATE 2 MG/ML INJ. IM ONE (05:30)
[2021-11-10] MEDS ORDERED: ACETAMINOPHEN 325 MG TABLET. PO ONE (05:30)
[2021-11-10] MEDS ORDERED: KETOROLAC 60 MG/2 ML VIAL. IM ONE (05:30)
[2021-11-10 05:42] LABS: RBC,URINE 0 /HPF (0-2); WBC,URINE OCC /HPF (0-4)
[2021-11-10 05:43] LABS: BACTERIA,URINE 0 /HPF (0-FEW)
[2021-11-10 05:50] VITALS: BP 133/83
--- NOTE | 2021-11-10 05:52 | RAD ---
CLINICAL HISTORY: Reason: pain swelling / Spl. Instructions: / History: COMPARISON: None available. TECHNIQUE: Ultrasound images of the scrotum was performed with glasgow-scale and color doppler. FINDINGS: The right testis measures 3.3 x 2.9 x 2.1 cm. The left testis measures 3.7 x 2.2 x 1.7 cm. There is no intratesticular abnormality. Testicular vascularity is symmetric and within normal limit s. The right epididymal tail is swollen and hyperemic compared to the left. There is no hydrocele or varicocele. IMPRESSION: 1. Probable right-sided epididymitis. 2. Normal testes with normal testicular blood flow. Electronically signed by: Tho Garland III, MD (11/10/2021 5:50 AM) [facility]LL
[2021-11-10] MEDS ORDERED: IBUP-1027 PO (06:07)
[2021-11-10] MEDS ORDERED: ACET325T9 PO (06:07)
[2021-11-10] MEDS ORDERED: LEVO500T9 PO (06:07)
[2021-11-10] MEDS ORDERED: METH-562 PO (06:07)
[2021-11-10] MEDS ORDERED: LIDO700A21 TP (06:07)
[2021-11-10] MEDS ORDERED: cefTRIAXone IM 1 GM VIAL IM ONE (06:30)
== END 2021-11-10 06:30 | disposition home or self-care (01) ==
LOC: ER 04:12
DX: N45.1 Epididymitis (principal); M89.8X8 Other specified disorders of bone, other site; I10 Essential (primary) hypertension; R10.84 Generalized abdominal pain
CPT/HCPCS: 76870; 81001; 96372; 99285; J0696; J1885; J2270; 99284